=== PATIENT | male | born 1995 | race Caucasian/White ===

== ENCOUNTER 2024-04-30 11:50 | Emergency (ER) | payer SELFPAY ==
[~2024-04-30] VITALS: Ht 175.3 cm; Wt 86.2 kg
[2024-04-30 12:06] VITALS: BP 154/77; PULSE 57; RESP 16; TEMP 98.3; O2SAT 98
== END 2024-04-30 12:48 | disposition home or self-care (01) ==
LOC: ER 11:50
DX: U07.1 COVID-19 (principal)
CPT/HCPCS: 99281